=== PATIENT | male | born 1940 | race Caucasian/White ===

== ENCOUNTER → 2024-05-24 16:39 | Outpatient (CLI) | payer MEDICARE, SELFPAY ==
--- NOTE | 2024-05-24 16:44 | DI.RAD.S_ITS ---
PROCEDURE: XR SCAPULA LT INDICATIONS: L SHOULDER PAIN TECHNIQUE: 2 views of the scapula were acquired. COMPARISON: None. FINDINGS: Bones: No fractures or dislocations. No suspicious bony lesions. Visualized ribs appear intact. Soft tissues: Overlying soft tissues appear normal. IMPRESSION: No acute osseous abnormality. If pain persists with conservative management, consider repeat x-ray in 10-14 days or cross-sectional imaging. Dictated by: Howard Beasley M.D. on 05/25/2024 at 9:20 Approved by: Howard Beasley M.D. on 05/25/2024 at 9:20
== END ==
PROVIDERS: PCP Family Medicine; Referring Provider Family Medicine; Visit Provider Family Medicine
DX: M25.512 Pain in left shoulder (principal)
CPT/HCPCS: 73010

== ENCOUNTER 2024-07-25 19:21 | Emergency (ER) | payer MEDICARE, SELFPAY ==
[2024-07-25] VITALS (11 sets, daily range): BP systolic 104–120; BP diastolic 63–75; PULSE 55–71; RESP 15; TEMP 37.2; O2SAT 94–97; BMI 18.8
--- NOTE | 2024-07-25 19:36 | PC.NURSE ---
Pt's daughter Lela (lives in [facility]) called requesting nurse/provider reach out to her to update her on pt's status. She is concerned since patient lives at home alone and has had multiple falls with cognitive decline per Lela. See contacts for her number. I informed Lela we would verify with patient that it is ok to update her. Lela expressed understanding.
--- NOTE | 2024-07-25 20:12 | DI.CT.S_ITS ---
PROCEDURE: CT FACIAL BONES WO CON INDICATIONS: MUTLIPE FALLS, FACIAL INJURIES TECHNIQUE: Noncontrast 2.5 mm thick axial images acquired from the mandible through the frontal sinuses, with coronal and sagittal reformatting. For radiation dose reduction, the following was used: automated exposure control, adjustment of mA and/or kV according to patient size. COMPARISON: None. FINDINGS: Image quality: Excellent. Bones and teeth: Orbital samano are intact. Sinus samano show no fracture or deformity. Nasal bones and septum are intact. Visualized portions of the mandible demonstrate no fractures or subluxation. Zygomatic arches are intact. Pterygoid plates are intact. Visualized portions of the skull base and auditory canals are intact. Sinuses: Paranasal sinuses are aerated, without fluid levels, mucosal thickening, or mucoceles. Mastoid air cells are aerated. Soft tissues: There is left supraorbital soft tissue laceration and mild swelling. No enlarged lymph nodes. No soft tissue lacerations or debris. Vascular: Visualized vascular structures appear normal in the absence of contrast. Bony vascular foramina and canals are intact. IMPRESSION: 1. Left supraorbital soft tissue laceration. No radiopaque foreign bodies. No abnormal soft tissue calcifications. 2. No acute facial bone or nasal bone fracture. Bilateral orbital globes and orbital samano are intact. 3. Bilateral paranasal sinuses are well aerated. Dictated by: Jean Galindo M.D. on 07/25/2024 at 21:16 Approved by: Jean Galindo M.D. on 07/25/2024 at 21:19
--- NOTE | 2024-07-25 20:12 | DI.CT.S_ITS ---
PROCEDURE: CT CERVICAL SPINE WO CON INDICATIONS: MULTIPLE FALLS, FACIAL/HEAD INJURIES TECHNIQUE: Noncontrast 3 mm thick sections acquired from the skull base to the T4 level. Sagittal and coronal reformats were then constructed. For radiation dose reduction, the following was used: automated exposure control, adjustment of mA and/or kV according to patient size. COMPARISON: None. FINDINGS: Image quality: Excellent. Bones: No fractures or dislocations. Degenerative endplate changes, loss of disc height and bilateral uncovertebral hypertrophic changes are noted throughout cervical spine causing [id number] central canal stenosis and bilateral neural foraminal narrowing more notably at C4-5 through C6-7 levels. Incidentally noted are subacute appearing nondisplaced fractures involving left posterior 3rd and 4th ribs. Soft tissues: Prevertebral soft tissues are normal in thickness. No paravertebral hematomas. No apical pneumothoraces. IMPRESSION: 1. No displaced cervical spine fracture or traumatic subluxation. 2. 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 3. Subacute appearing nondisplaced fractures involving left posterior steroid and 4th ribs. Dictated by: Jean Galindo M.D. on 07/25/2024 at 21:19 Approved by: Jean Galindo M.D. on 07/25/2024 at 21:28
--- NOTE | 2024-07-25 20:17 | EKG_ITS ---
[place] [id number] [place] [id number] Test Date: 2024-07-25 Pat Name: Edgardo Martínez Department: [facility] Room: Gender: Male Continuous Process [employer]: : 1940 Requested By: Order Number: [id number] Reading MD: Jose Rico Measurements Intervals [place] Rate: 57 P: 68 [place]: 156 QRS: 35 QRSD: 98 T: 46 QT: 428 QTc: 416 Interpretive Statements Sinus bradycardia Minimal voltage criteria for LVH, may be normal variant ( Sokolow-James ) Septal infarct , age undetermined Electronically Signed On 07-26-2024 8:51:39 PDT by Jose Rico
--- NOTE | 2024-07-25 20:18 | ED_ITS ---
HPI - Fall <Kaylyn Christianson MD - Last Filed: 07/26/24 06:42> General Chief Complaint: Fall Stated Complaint: multiple falls, injuries Time Seen by Provider: 07/25/24 20:08 Source: patient Mode of arrival: Wheelchair History of Present Illness HPI Narrative: 83-year-old male with reported recent diagnosis of parkinsonian syndrome presents by private vehicle for numerous falls. Patient told triage nurse that he was fallen every day for the last month, he tells me that he has fallen every day for at least the last week, but isn't exactly sure of the timeline. He states he feels very dizzy and lightheaded. States that he fell twice today and decided to have his friend bring him in for evaluation. Patient has extensive bruising over his face and cheeks in various stages of healing. Patient also complaining right sided chest and lumbar pain. Related Data Home Medications Medication Instructions Recorded Confirmed finasteride 5 mg tablet 5 mg PO DAILY 07/26/24 07/26/24 gabapentin 300 mg capsule 300 mg PO 3XD 07/26/24 07/26/24 lisinopril 5 mg tablet 5 mg PO DAILY 07/26/24 07/26/24 oxycodone 10 mg tablet 10 mg PO 3XD PRN Back Pain 07/26/24 07/26/24 primidone 50 mg tablet PO 07/26/24 tadalafil 5 mg tablet 5 mg PO DAILY 07/26/24 07/26/24 trazodone 150 mg tablet 150 mg PO ONCE PM 07/26/24 07/26/24 venlafaxine 150 mg 300 mg PO DAILY 07/26/24 07/26/24 capsule,extended release 24 hr Allergies Allergy/AdvReac Type Severity Reaction Status Date / Time No Known Drug Allergies Allergy Verified 07/25/24 20:44 <Fely Tilley DO - Last Filed: 07/27/24 13:59> History of Present Illness HPI Narrative: 83-year-old male with reported recent diagnosis of parkinsonian syndrome presents by private vehicle for numerous falls. Patient told triage nurse that he was fallen every day for the last month, he tells me that he has fallen every day for at least the last week, but isn't exactly sure of the timeline. He states he feels very dizzy and lightheaded. States that he fell twice today and decided to have his friend bring him in for evaluation. Patient has extensive bruising over his face and cheeks in various stages of healing. Patient also complaining right sided chest and lumbar pain. Daughter Lydia [phone] in [place] Patient History <Kaylyn Christianson MD - Last Filed: 07/26/24 06:42> Medical History (Updated 08/18/24 @ 11:49 by Edilson Black MD) Sleep disturbance, unspecified Parkinsons Depression Hypertension Social History household members: none Smoking Status: Never smoker Smoking Status: Never smoker alcohol intake frequency: 0-2 drinks per day Substance Use Type: does not use Exam <Kaylyn Christianson MD - Last Filed: 07/26/24 06:42> Initial Vital Signs Initial Vital Signs: Vital Signs Temperature 98.9 F 07/25/24 19:42 Pulse Rate 71 07/25/24 19:42 Respiratory Rate 15 07/25/24 19:42 Blood Pressure 106/66 07/25/24 19:42 Pulse Oximetry 96 07/25/24 19:42 Oxygen Delivery Method Room Air 07/25/24 19:42 Const: Awake, alert, debilitated, frail, appears chronically unwell Cardiac: regular rate, regular rhythm RESP: unlabored, clear bilaterally, no wheezing GI: Soft, nontender, nondistended MSK: Generalized tenderness along right chest wall, lumbar back Skin: Warm, Dry, extensive bruising over face and cheeks in various stages of healing Neuro: AO x2, CN II-XII grossly intact, moves all extremities <Edilson Black MD - Last Filed: 08/18/24 11:51> Initial Vital Signs Initial Vital Signs: Vital Signs Temperature 98.9 F 07/25/24 19:42 Pulse Rate 71 07/25/24 19:42 Respiratory Rate 15 07/25/24 19:42 Blood Pressure 106/66 07/25/24 19:42 Pulse Oximetry 96 07/25/24 19:42 Oxygen Delivery Method Room Air 07/25/24 19:42 <Fely Tilley DO - Last Filed: 07/27/24 13:59> Initial Vital Signs Initial Vital Signs: Vital Signs Temperature 98.9 F 07/25/24 19:42 Pulse Rate 71 07/25/24 19:42 Respiratory Rate 15 07/25/24 19:42 Blood Pressure 106/66 07/25/24 19:42 Pulse Oximetry 96 07/25/24 19:42 Oxygen Delivery Method Room Air 07/25/24 19:42 Course <Kaylyn Christianson MD - Last Filed: 07/26/24 06:42> Orders Ordered: Discontinued Medications Finasteride (Finasteride 5 Mg Tablet) 5 mg PO DAILY [facility] Last Admin: 07/27/24 08:19 Dose: 5 mg Documented By: Admin: 07/26/24 08:24 Dose: 5 mg Documented By: MPO Fluorescein Sodium (Fluorescein 1 Mg Strip) 1 mg EYE-BOTH NOW ONE Stop: 07/27/24 08:04 Last Admin: 07/27/24 08:19 Dose: 1 mg Documented By: SPF Gabapentin (Gabapentin 300 Mg Capsule) 300 mg PO TID [facility] Last Admin: 07/27/24 08:21 Dose: 300 mg Documented By: Admin: 07/27/24 00:53 Dose: 300 mg Documented By: Admin: 07/26/24 17:02 Dose: 300 mg Documented By: Admin: 07/26/24 08:23 Dose: 300 mg Documented By: MPO Sodium Chloride (Normal Saline 0.9%) 1,000 mls @ 1,000 mls/hr IV BOLUS ONE Stop: 07/25/24 21:11 Last Infusion: 07/25/24 21:32 Dose: Infused Documented By: Admin: 07/25/24 20:26 Dose: 1,000 mls/hr Documented By: KW Levofloxacin (Levaquin) 750 mg in 150 mls @ 100 mls/hr IV NOW ONE Stop: 07/27/24 11:51 Last Infusion: 07/27/24 12:46 Dose: Infused Documented By: Admin: 07/27/24 10:52 Dose: 100 mls/hr Documented By: SPF Lisinopril (Lisinopril 5 Mg Tablet) 5 mg PO DAILY [facility] Last Admin: 07/27/24 08:20 Dose: 5 mg Documented By: Admin: 07/26/24 08:23 Dose: 5 mg Documented By: MPO Lorazepam (Lorazepam 2 Mg/Ml Inj) 0.5 mg IV NOW ONE Stop: 07/27/24 12:06 Last Admin: 07/27/24 12:15 Dose: 0.5 mg Documented By: SPF Lorazepam (Lorazepam 2 Mg/Ml Inj) 0.5 mg IV NOW ONE Stop: 07/27/24 14:08 Last Admin: 07/27/24 14:15 Dose: 0.5 mg Documented By: SPF Morphine Sulfate (Morphine 4 Mg/Ml Inj) 4 mg IV NOW ONE Stop: 07/25/24 20:13 Last Admin: 07/25/24 20:26 Dose: 4 mg Documented By: ANITA Oxycodone HCl (Oxycodone Ir 5 Mg Tablet) 5 mg PO NOW ONE Stop: 07/26/24 01:08 Last Admin: 07/26/24 01:14 Dose: 5 mg Documented By: MARA Oxycodone HCl (Oxycodone Ir 5 Mg Tablet) 5 mg PO NOW ONE Stop: 07/26/24 02:19 Last Admin: 07/26/24 02:23 Dose: 5 mg Documented By: Oxycodone HCl (Oxycodone Er 10 Mg Tab) 10 mg PO TID PRN PRN Reason: Pain, Severe (7-10) Last Admin: 07/27/24 08:21 Dose: 10 mg Documented By: Admin: 07/27/24 00:55 Dose: 10 mg Documented By: Admin: 07/26/24 17:01 Dose: 10 mg Documented By: Admin: 07/26/24 08:23 Dose: 10 mg Documented By: MPO Proparacaine HCl (Proparacaine 0.5% Ophth Afshan) 1 drops EYE-BOTH NOW ONE Stop: 07/27/24 08:04 Last Admin: 07/27/24 08:19 Dose: 1 drop Documented By: SPF Venlafaxine HCl (Venlafaxine 37.5 Mg Tablet) 300 mg PO DAILY [facility] Venlafaxine HCl (Venlafaxine Er 75 Mg Cap) 300 mg PO DAILY [facility] Last Admin: 07/27/24 09:56 Dose: 300 mg Documented By: Admin: 07/26/24 08:23 Dose: 300 mg Documented By: IDA Vital Signs Vital signs: Vital Signs - 8 hr 07/27/24 07:40 07/27/24 07:42 07/27/24 07:43 Pulse Rate Respiratory Rate Blood Pressure 151/80 H 143/76 H 144/83 H Pulse Oximetry Oxygen Delivery Method 07/27/24 07:57 07/27/24 08:00 07/27/24 08:20 Pulse Rate 65 63 62 Respiratory Rate Blood Pressure 151/80 H Pulse Oximetry 95 Oxygen Delivery Method Room Air 07/27/24 08:30 07/27/24 10:50 07/27/24 10:51 Pulse Rate 61 67 Respiratory Rate Blood Pressure 106/61 Pulse Oximetry 98 96 Oxygen Delivery Method 07/27/24 10:51 07/27/24 11:00 07/27/24 11:30 Pulse Rate 67 60 70 Respiratory Rate 24 17 Blood Pressure Pulse Oximetry 98 98 96 Oxygen Delivery Method Room Air Room Air 07/27/24 12:00 07/27/24 12:00 07/27/24 12:30 Pulse Rate 73 58 L Respiratory Rate 14 23 Blood Pressure 101/63 Pulse Oximetry 98 98 Oxygen Delivery Method Room Air 07/27/24 12:44 07/27/24 12:44 07/27/24 13:00 Pulse Rate 59 L 58 L Respiratory Rate 24 27 H Blood Pressure 103/65 Pulse Oximetry 97 97 Oxygen Delivery Method Room Air Room Air 07/27/24 13:30 07/27/24 13:39 07/27/24 13:39 Pulse Rate 58 L 58 L Respiratory Rate 25 H Blood Pressure 111/66 Pulse Oximetry 98 98 Oxygen Delivery Method Room Air Room Air <Edilson Black MD - Last Filed: 08/18/24 11:51> Orders Ordered: Discontinued Medications Finasteride (Finasteride 5 Mg Tablet) 5 mg PO DAILY [facility] Last Admin: 07/27/24 08:19 Dose: 5 mg Documented By: Admin: 07/26/24 08:24 Dose: 5 mg Documented By: MPO Fluorescein Sodium (Fluorescein 1 Mg Strip) 1 mg EYE-BOTH NOW ONE Stop: 07/27/24 08:04 Last Admin: 07/27/24 08:19 Dose: 1 mg Documented By: SPF Gabapentin (Gabapentin 300 Mg Capsule) 300 mg PO TID [facility] Last Admin: 07/27/24 08:21 Dose: 300 mg Documented By: Admin: 07/27/24 00:53 Dose: 300 mg Documented By: Admin: 07/26/24 17:02 Dose: 300 mg Documented By: Admin: 07/26/24 08:23 Dose: 300 mg Documented By: IDA Sodium Chloride (Normal Saline 0.9%) 1,000 mls @ 1,000 mls/hr IV BOLUS ONE Stop: 07/25/24 21:11 Last Infusion: 07/25/24 21:32 Dose: Infused Documented By: Admin: 07/25/24 20:26 Dose: 1,000 mls/hr Documented By: ANITA Levofloxacin (Levaquin) 750 mg in 150 mls @ 100 mls/hr IV NOW ONE Stop: 07/27/24 11:51 Last Infusion: 07/27/24 12:46 Dose: Infused Documented By: Admin: 07/27/24 10:52 Dose: 100 mls/hr Documented By: KANWAL Lisinopril (Lisinopril 5 Mg Tablet) 5 mg PO DAILY [facility] Last Admin: 07/27/24 08:20 Dose: 5 mg Documented By: Admin: 07/26/24 08:23 Dose: 5 mg Documented By: IDA Lorazepam (Lorazepam 2 Mg/Ml Inj) 0.5 mg IV NOW ONE Stop: 07/27/24 12:06 Last Admin: 07/27/24 12:15 Dose: 0.5 mg Documented By: KANWAL Lorazepam (Lorazepam 2 Mg/Ml Inj) 0.5 mg IV NOW ONE Stop: 07/27/24 14:08 Last Admin: 07/27/24 14:15 Dose: 0.5 mg Documented By: SPF Morphine Sulfate (Morphine 4 Mg/Ml Inj) 4 mg IV NOW ONE Stop: 07/25/24 20:13 Last Admin: 07/25/24 20:26 Dose: 4 mg Documented By: ANITA Oxycodone HCl (Oxycodone Ir 5 Mg Tablet) 5 mg PO NOW ONE Stop: 07/26/24 01:08 Last Admin: 07/26/24 01:14 Dose: 5 mg Documented By: MARA Oxycodone HCl (Oxycodone Ir 5 Mg Tablet) 5 mg PO NOW ONE Stop: 07/26/24 02:19 Last Admin: 07/26/24 02:23 Dose: 5 mg Documented By: Oxycodone HCl (Oxycodone Er 10 Mg Tab) 10 mg PO TID PRN PRN Reason: Pain, Severe (7-10) Last Admin: 09/12/24 08:21 Dose: 10 mg Documented By: Admin: 07/27/24 00:55 Dose: 10 mg Documented By: Admin: 07/26/24 17:01 Dose: 10 mg Documented By: Admin: 07/26/24 08:23 Dose: 10 mg Documented By: IDA Proparacaine HCl (Proparacaine 0.5% Ophth Afshan) 1 drops EYE-BOTH NOW ONE Stop: 07/27/24 08:04 Last Admin: 07/27/24 08:19 Dose: 1 drop Documented By: KANWAL Venlafaxine HCl (Venlafaxine 37.5 Mg Tablet) 300 mg PO DAILY [facility] Venlafaxine HCl (Venlafaxine Er 75 Mg Cap) 300 mg PO DAILY [facility] Last Admin: 07/27/24 09:56 Dose: 300 mg Documented By: Admin: 07/26/24 08:23 Dose: 300 mg Documented By: IDA Vital Signs Vital signs: Vital Signs - 8 hr 07/27/24 07:40 07/27/24 07:42 07/27/24 07:43 Pulse Rate Respiratory Rate Blood Pressure 151/80 H 143/76 H 144/83 H Pulse Oximetry Oxygen Delivery Method 07/27/24 07:57 07/27/24 08:00 07/27/24 08:20 Pulse Rate 65 63 62 Respiratory Rate Blood Pressure 151/80 H Pulse Oximetry 95 Oxygen Delivery Method Room Air 07/27/24 08:30 07/27/24 10:50 07/27/24 10:51 Pulse Rate 61 67 Respiratory Rate Blood Pressure 106/61 Pulse Oximetry 98 96 Oxygen Delivery Method 07/27/24 10:51 07/27/24 11:00 07/27/24 11:30 Pulse Rate 67 60 70 Respiratory Rate 24 17 Blood Pressure Pulse Oximetry 98 98 96 Oxygen Delivery Method Room Air Room Air 07/27/24 12:00 07/27/24 12:00 07/27/24 12:30 Pulse Rate 73 58 L Respiratory Rate 14 23 Blood Pressure 101/63 Pulse Oximetry 98 98 Oxygen Delivery Method Room Air 07/27/24 12:44 07/27/24 12:44 07/27/24 13:00 Pulse Rate 59 L 58 L Respiratory Rate 24 27 H Blood Pressure 103/65 Pulse Oximetry 97 97 Oxygen Delivery Method Room Air Room Air 07/27/24 13:30 07/27/24 13:39 09/12/24 13:39 Pulse Rate 58 L 58 L Respiratory Rate 25 H Blood Pressure 111/66 Pulse Oximetry 98 98 Oxygen Delivery Method Room Air Room Air <Fely Tilley DO - Last Filed: 07/27/24 13:59> Orders Ordered: Discontinued Medications Finasteride (Finasteride 5 Mg Tablet) 5 mg PO DAILY [facility] Last Admin: 07/27/24 08:19 Dose: 5 mg Documented By: Admin: 07/26/24 08:24 Dose: 5 mg Documented By: MPO Fluorescein Sodium (Fluorescein 1 Mg Strip) 1 mg EYE-BOTH NOW ONE Stop: 07/27/24 08:04 Last Admin: 07/27/24 08:19 Dose: 1 mg Documented By: SPF Gabapentin (Gabapentin 300 Mg Capsule) 300 mg PO TID [facility] Last Admin: 07/27/24 08:21 Dose: 300 mg Documented By: Admin: 07/27/24 00:53 Dose: 300 mg Documented By: Admin: 07/26/24 17:02 Dose: 300 mg Documented By: Admin: 07/26/24 08:23 Dose: 300 mg Documented By: MPO Sodium Chloride (Normal Saline 0.9%) 1,000 mls @ 1,000 mls/hr IV BOLUS ONE Stop: 07/25/24 21:11 Last Infusion: 07/25/24 21:32 Dose: Infused Documented By: Admin: 07/25/24 20:26 Dose: 1,000 mls/hr Documented By: KW Levofloxacin (Levaquin) 750 mg in 150 mls @ 100 mls/hr IV NOW ONE Stop: 07/27/24 11:51 Last Infusion: 07/27/24 12:46 Dose: Infused Documented By: Admin: 07/27/24 10:52 Dose: 100 mls/hr Documented By: SPF Lisinopril (Lisinopril 5 Mg Tablet) 5 mg PO DAILY [facility] Last Admin: 07/27/24 08:20 Dose: 5 mg Documented By: Admin: 07/26/24 08:23 Dose: 5 mg Documented By: MPO Lorazepam (Lorazepam 2 Mg/Ml Inj) 0.5 mg IV NOW ONE Stop: 07/27/24 12:06 Last Admin: 07/27/24 12:15 Dose: 0.5 mg Documented By: SPF Lorazepam (Lorazepam 2 Mg/Ml Inj) 0.5 mg IV NOW ONE Stop: 07/27/24 14:08 Last Admin: 07/27/24 14:15 Dose: 0.5 mg Documented By: SPF Morphine Sulfate (Morphine 4 Mg/Ml Inj) 4 mg IV NOW ONE Stop: 07/25/24 20:13 Last Admin: 07/25/24 20:26 Dose: 4 mg Documented By: ANITA Oxycodone HCl (Oxycodone Ir 5 Mg Tablet) 5 mg PO NOW ONE Stop: 07/26/24 01:08 Last Admin: 07/26/24 01:14 Dose: 5 mg Documented By: MARA Oxycodone HCl (Oxycodone Ir 5 Mg Tablet) 5 mg PO NOW ONE Stop: 07/26/24 02:19 Last Admin: 07/26/24 02:23 Dose: 5 mg Documented By: Oxycodone HCl (Oxycodone Er 10 Mg Tab) 10 mg PO TID PRN PRN Reason: Pain, Severe (7-10) Last Admin: 07/27/24 08:21 Dose: 10 mg Documented By: Admin: 07/27/24 00:55 Dose: 10 mg Documented By: Admin: 07/26/24 17:01 Dose: 10 mg Documented By: Admin: 07/26/24 08:23 Dose: 10 mg Documented By: MPO Proparacaine HCl (Proparacaine 0.5% Ophth Afshan) 1 drops EYE-BOTH NOW ONE Stop: 07/27/24 08:04 Last Admin: 07/27/24 08:19 Dose: 1 drop Documented By: SPF Venlafaxine HCl (Venlafaxine 37.5 Mg Tablet) 300 mg PO DAILY [facility] Venlafaxine HCl (Venlafaxine Er 75 Mg Cap) 300 mg PO DAILY [facility] Last Admin: 07/27/24 09:56 Dose: 300 mg Documented By: Admin: 07/26/24 08:23 Dose: 300 mg Documented By: MPO Vital Signs Vital signs: Vital Signs - 8 hr 07/27/24 07:40 07/27/24 07:42 07/27/24 07:43 Pulse Rate Respiratory Rate Blood Pressure 151/80 H 143/76 H 144/83 H Pulse Oximetry Oxygen Delivery Method 07/27/24 07:57 07/27/24 08:00 07/27/24 08:20 Pulse Rate 65 63 62 Respiratory Rate Blood Pressure 151/80 H Pulse Oximetry 95 Oxygen Delivery Method Room Air 07/27/24 08:30 07/27/24 10:50 07/27/24 10:51 Pulse Rate 61 67 Respiratory Rate Blood Pressure 106/61 Pulse Oximetry 98 96 Oxygen Delivery Method 07/27/24 10:51 07/27/24 11:00 07/27/24 11:30 Pulse Rate 67 60 70 Respiratory Rate 24 17 Blood Pressure Pulse Oximetry 98 98 96 Oxygen Delivery Method Room Air Room Air 07/27/24 12:00 07/27/24 12:00 07/27/24 12:30 Pulse Rate 73 58 L Respiratory Rate 14 23 Blood Pressure 101/63 Pulse Oximetry 98 98 Oxygen Delivery Method Room Air 07/27/24 12:44 07/27/24 12:44 07/27/24 13:00 Pulse Rate 59 L 58 L Respiratory Rate 24 27 H Blood Pressure 103/65 Pulse Oximetry 97 97 Oxygen Delivery Method Room Air Room Air 07/27/24 13:30 07/27/24 13:39 07/27/24 13:39 Pulse Rate 58 L 58 L Respiratory Rate 25 H Blood Pressure 111/66 Pulse Oximetry 98 98 Oxygen Delivery Method Room Air Room Air MDM - Fall <Kaylyn Christianson MD - Last Filed: 07/26/24 06:42> Lab Data 07/25/24 17:39 07/25/24 17:39 Labs: Lab Results 07/25/24 07/25/24 07/25/24 Range/Units 17:39 23:40 23:40 WBC 7.4 (4.5-11.0) X10^3/uL RBC 3.92 L (4.5-5.9) X10^6/uL Hgb 11.1 L (13.5-17.5) g/dL Hct 33.7 L (41-53) % MCV 86.0 (80-100) fL MCH 28.5 (26-34) PG MCHC 33.1 (30-36) % RDW 16.7 H (11.6-14.8) % Plt Count 217 (150-400) X10^3/uL Neut % (Auto) 63.2 (50-75) % Lymph % (Auto) 16.5 L (25-40) % [place] % (Auto) 11.3 (3-14) % Eos % (Auto) 7.8 H (2-4) % Baso % (Auto) 1.2 (0-2) % Neut # (Auto) 4700 (0784-5255) /uL Lymph # (Auto) 1200 (8861-7250) /uL [place] # (Auto) 800 (0-900) /uL Eos # (Auto) 600 H (0-450) /uL Baso # (Auto) 100 (0-100) /uL PT 10.5 (9.4-12.5) SECONDS INR 0.9 (0.9-1.3) Sodium 141 (137-145) mmol/L Potassium 3.6 (3.4-5.1) mmol/L Chloride 104 (98-107) mmol/L Carbon Dioxide 33 H (22-32) mmol/L BUN 18 (9-20) mg/dL Creatinine 1.22 (0.66-1.25) mg/dL Estimated GFR 59 L (>60) mL/min BUN/Creatinine Ratio 14.8 (6-22) Glucose 109 (80-110) mg/dL Calcium 9.3 (8.4-10.2) mg/dL Magnesium 1.7 (1.6-2.3) mg/dL Total Bilirubin 0.6 (0.2-1.3) mg/dL AST 66 H (17-59) IU/L ALT 55 H (<50) IU/L Alkaline Phosphatase 62 (38-126) U/L Total Protein 6.8 (6.3-8.2) g/dL Albumin 4.1 (3.5-5.0) g/dL Globulin 2.7 (1.7-4.1) g/dL Albumin/Globulin Ratio 1.5 (1.0-2.8) Urine Color Yellow Urine Appearance Clear Urine pH 5.5 TNP (4.5-8.0) Ur Specific Rice 1.025 (1.000-1.035) Urine Protein Trace H (Negative) Urine Glucose (UA) Negative (Negative) g/dL Urine Ketones Trace H (NEGATIVE) Urine Occult Blood Negative (Negative) Urine Nitrate Negative (Negative) Urine Bilirubin 1+ H (NEGATIVE) Ur Bilirubin Confirm Negative (Negative) Urine Urobilinogen 1.0 (0.2) E.U./dL Ur Leukocyte Esterase Negative (NEGATIVE) Urine RBC None seen (0-5/HPF) Urine WBC None seen (0-5/HPF) Ur Squamous Epith Cells 0-1 /hpf (0-5/HPF) Urine Bacteria None seen (None) Ur Culture Indicated? Cult not indicated Vol Urine Centrifuged 10ml (spun) U Opiates 300ng/mL cut Positive H (Negative) Ur Oxycodone Screen Negative (Negative) Urine Methadone Screen Negative (Negative) Ur Barbiturates Screen Positive H (Negative) U Tricyclic Antidepress Negative (Negative) Ur Phencyclidine Scrn Negative (Negative) Ur Amphetamines Screen Negative (Negative) U Methamphetamines Scrn Negative (Negative) Ur MDMA Scrn (Ecstasy) Negative (Negative) U Benzodiazepines Scrn Negative (Negative) Urine Cocaine Screen Negative (Negative) U Marijuana (THC) Screen Negative (Negative) Urine Specific Rice TNP Ethyl Alcohol < 10 ( - 10) mg/dL Ur Creatinine TNP Imaging Data CT - cervical spine: Radiologist's Impression: PROCEDURE: CT CERVICAL SPINE WO CON INDICATIONS: MULTIPLE FALLS, FACIAL/HEAD INJURIES TECHNIQUE: Noncontrast 3 mm thick sections acquired from the skull base to the T4 level. Sagittal and coronal reformats were then constructed. For radiation dose reduction, the following was used: automated exposure control, adjustment of mA and/or kV according to patient size. COMPARISON: None. FINDINGS: Image quality: Excellent. Bones: No fractures or dislocations. Degenerative endplate changes, loss of disc height and bilateral uncovertebral hypertrophic changes are noted throughout cervical spine causing [id number] central canal stenosis and bilateral neural foraminal narrowing more notably at C4-5 through C6-7 levels. Incidentally noted are subacute appearing nondisplaced fractures involving left posterior 3rd and 4th ribs. Soft tissues: Prevertebral soft tissues are normal in thickness. No paravertebral hematomas. No apical pneumothoraces. IMPRESSION: 1. No displaced cervical spine fracture or traumatic subluxation. 2. 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 3. Subacute appearing nondisplaced fractures involving left posterior steroid and 4th ribs. Dictated by: Jean Galindo M.D. on 07/25/2024 at 21:19 Approved by: Jean Galindo M.D. on 07/25/2024 at 21:28 CT scan - head: Radiologist's Impression: PROCEDURE: CT HEAD/BRAIN WO CON INDICATIONS: FREQUENT FALLS, MULTIPLE HEAD INJURIES TECHNIQUE: Noncontrast 4.5 mm thick angled axial sections acquired from the foramen magnum to the vertex, with coronal and sagittal reformats. For radiation dose reduction, the following was used: automated exposure control, adjustment of mA and/or kV according to patient size. COMPARISON: None. FINDINGS: Image quality: Diagnostic. CSF spaces: Basal cisterns are patent. No extra-axial fluid collections. The ventricles are symmetric in size and shape. Brain: No intracranial bleeds or masses. There is cerebral volume loss for age, with resultant ventricular and sulcal prominence. There are periventricular and deep white matter chronic small vessel ischemic changes. There is intracranial internal carotid artery atherosclerosis. Skull and face: Calvarium and visualized facial bones appear intact, without suspicious lesions. Sinuses: Visualized sinuses and mastoids are clear. IMPRESSION: 1. No acute intracranial pathology. 2. Age related volume loss and [id number] periventricular and deep white matter chronic small vessel ischemic changes. Dictated by: Jean Galindo M.D. on 07/25/2024 at 21:15 Approved by: Jean Galindo M.D. on 07/25/2024 at 21:16 PROCEDURE: CT FACIAL BONES WO CON INDICATIONS: MUTLIPE FALLS, FACIAL INJURIES TECHNIQUE: Noncontrast 2.5 mm thick axial images acquired from the mandible through the frontal sinuses, with coronal and sagittal reformatting. For radiation dose reduction, the following was used: automated exposure control, adjustment of mA and/or kV according to patient size. COMPARISON: None. FINDINGS: Image quality: Excellent. Bones and teeth: Orbital samano are intact. Sinus samano show no fracture or deformity. Nasal bones and septum are intact. Visualized portions of the mandible demonstrate no fractures or subluxation. Zygomatic arches are intact. Pterygoid plates are intact. Visualized portions of the skull base and auditory canals are intact. Sinuses: Paranasal sinuses are aerated, without fluid levels, mucosal thickening, or mucoceles. Mastoid air cells are aerated. Soft tissues: There is left supraorbital soft tissue laceration and mild swelling. No enlarged lymph nodes. No soft tissue lacerations or debris. Vascular: Visualized vascular structures appear normal in the absence of contrast. Bony vascular foramina and canals are intact. IMPRESSION: 1. Left supraorbital soft tissue laceration. No radiopaque foreign bodies. No abnormal soft tissue calcifications. 2. No acute facial bone or nasal bone fracture. Bilateral orbital globes and orbital samano are intact. 3. Bilateral paranasal sinuses are well aerated. Dictated by: Jean Galindo M.D. on 07/25/2024 at 21:16 Approved by: Jean Galindo M.D. on 07/25/2024 at 21:19 CT scan - chest: Radiologist's Impression: PROCEDURE: CT CHEST WO CON INDICATIONS: multiple falls, R rib/back pain TECHNIQUE: Noncontrast 5 mm thick sections acquired from the pulmonary apices to the posterior costophrenic angles. 1 mm lung window, 5 mm thick coronal and sagittal and 7 mm axial MIP reformats were then acquired. For radiation dose reduction, the following was used: automated exposure control, adjustment of mA and/or kV according to patient size. COMPARISON: [facility], CT, CT CERVICAL SPINE WO CON, 07/25/2024, 20:52. FINDINGS: Image quality: Diagnostic. Lower Neck: No enlarged lymph nodes. Thyroid: No thyroid nodules which require sonographic follow up, per consensus guidelines. Axillae: No enlarged lymph nodes. Chest Wall: Unremarkable. Bones: Thoracolumbar spine hardware. No suspicious osseous lesion. No hardware fracture. No suspicious osseous lesion. Left 2nd-4th rib fractures, seen on CT cervical spine 07/25/2024. Likely chronic. Healed right 4-7th rib fractures. Right 9th and 10th rib fractures, (2/53). Lungs and Pleura: No pneumothorax. Trace left pleural fluid. No consolidation or suspicious nodules. Right lower lobe pulmonary nodule measuring 0.4 cm, (3/162). Heart: Heart size is normal. Mild LAD coronary artery calcifications. No pericardial effusion. Thoracic Vessels: The aorta and pulmonary arteries demonstrate normal size. Mediastinum and Sheryl: No enlarged lymph nodes. Esophagus: No wall thickening. No hiatal hernia. Upper Abdomen: Post cholecystectomy. Bilateral low-density renal cysts. Small nonobstructing left kidney stone. IMPRESSION: 1. Nondisplaced right 9th and 10th rib fractures. These could be acute. 2. Multiple healed right-sided rib fractures and suspected subacute or chronic left-sided rib fractures. 3. Trace left pleural fluid. Nonobstructing left kidney stone. Post cholecystectomy. Dictated by: Rubens Hma M.D. on 07/26/2024 at 1:46 Approved by: Rubens Ham M.D. on 07/26/2024 at 1:56 CT scan - abdomen/pelvis: Radiologist's Impression: PROCEDURE: CT LUMBAR SPINE WO CON INDICATIONS: multiple falls, lumbar back pain TECHNIQUE: Noncontrast 3 mm thick sections acquired from the T12 level to the sacrum. Sagittal and coronal reformats were constructed. For radiation dose reduction, the following was used: automated exposure control. COMPARISON: [facility] ([place]), CR, XR CHEST 2V, 03/30/2024, 14:54. FINDINGS: Image quality: Good. Beam hardening artifact. Bones: [id number] spine fixation hardware. No hardware fracture. There is normal bony alignment. No acute vertebral body compression fractures. No suspicious lytic or blastic bony lesions. No pars defects. Soft tissues: No retroperitoneal masses or hematomas. Visualized aorta is normal in caliber. Nonobstructing left kidney stone. Low-density renal cysts bilaterally. Left abdominal wall mesh. Clip in the right lower quadrant. Prostatomegaly. Diverticulosis. IMPRESSION: No spine fracture. No hardware fracture. Left nonobstructing kidney stone. Prostatomegaly. Dictated by: Rubens Ham M.D. on 07/26/2024 at 1:56 Approved by: Rubens Ham M.D. on 07/26/2024 at 2:01 MDM Narrative Medical decision making narrative: Patient with bruising all over his forehead and cheeks presenting with multiple falls over an uncertain time period. Patient's recollection of events varies when he tells 2 different people. He does seem confused and very frail. Patient's daughter apparently called and told nursing staff that she was worried about cognitive decline and being unsafe at home. If patient was falling even a fraction of the times that he says that he was fallen it likely is unsafe for him to go back to his home the way he was now. Laboratory work, CT imaging ordered for assessment. Laboratory work reviewed, WBC count 7.4, hemoglobin 11.1, platelets 217, sodium 141, potassium 3.6, creatinine 1.22, glucose 109, T bili 0.6, AST 66, ALT 55, alk phos 62. Urinalysis remarkable for trace ketones, no signs of infection. Urine drug screen positive for opiates and barbiturates. Patient did get IV morphine on arrival due to pain. Patient was unable to recall his medication list at this time. CT imaging reports possibel nondisplaced R 9th and 10th ribs, healed right-sided rib fractures and old left-sided rib fractures. No other traumatic injuries identified. Attempted to have patient walk, however even with maximum assist patient barely able to ambulate with a walker. Physical therapy, occupational therapy, social media coordinator to be consulted for assessment. 07/26/24 - Pending PT/OT/IMMIGRATION LAW SPECIALIST. Care of patient signed to Dr. Black at 0700 <Edilson Black MD - Last Filed: 08/18/24 11:51> Lab Data Labs: Lab Results 07/25/24 07/25/24 07/25/24 Range/Units 17:39 23:40 23:40 WBC 7.4 (4.5-11.0) X10^3/uL RBC 3.92 L (4.5-5.9) X10^6/uL Hgb 11.1 L (13.5-17.5) g/dL Hct 33.7 L (41-53) % MCV 86.0 (80-100) fL MCH 28.5 (26-34) PG MCHC 33.1 (30-36) % RDW 16.7 H (11.6-14.8) % Plt Count 217 (150-400) X10^3/uL Neut % (Auto) 63.2 (50-75) % Lymph % (Auto) 16.5 L (25-40) % [place] % (Auto) 11.3 (3-14) % Eos % (Auto) 7.8 H (2-4) % Baso % (Auto) 1.2 (0-2) % Neut # (Auto) 4700 (2179-4882) /uL Lymph # (Auto) 1200 (6690-7552) /uL [place] # (Auto) 800 (0-900) /uL Eos # (Auto) 600 H (0-450) /uL Baso # (Auto) 100 (0-100) /uL PT 10.5 (9.4-12.5) SECONDS INR 0.9 (0.9-1.3) Sodium 141 (137-145) mmol/L Potassium 3.6 (3.4-5.1) mmol/L Chloride 104 (98-107) mmol/L Carbon Dioxide 33 H (22-32) mmol/L BUN 18 (9-20) mg/dL Creatinine 1.22 (0.66-1.25) mg/dL Estimated GFR 59 L (>60) mL/min BUN/Creatinine Ratio 14.8 (6-22) Glucose 109 (80-110) mg/dL Calcium 9.3 (8.4-10.2) mg/dL Magnesium 1.7 (1.6-2.3) mg/dL Total Bilirubin 0.6 (0.2-1.3) mg/dL AST 66 H (17-59) IU/L ALT 55 H (<50) IU/L Alkaline Phosphatase 62 (38-126) U/L Total Protein 6.8 (6.3-8.2) g/dL Albumin 4.1 (3.5-5.0) g/dL Globulin 2.7 (1.7-4.1) g/dL Albumin/Globulin Ratio 1.5 (1.0-2.8) Urine Color Yellow Urine Appearance Clear Urine pH 5.5 TNP (4.5-8.0) Ur Specific Rice 1.025 (1.000-1.035) Urine Protein Trace H (Negative) Urine Glucose (UA) Negative (Negative) g/dL Urine Ketones Trace H (NEGATIVE) Urine Occult Blood Negative (Negative) Urine Nitrate Negative (Negative) Urine Bilirubin 1+ H (NEGATIVE) Ur Bilirubin Confirm Negative (Negative) Urine Urobilinogen 1.0 (0.2) E.U./dL Ur Leukocyte Esterase Negative (NEGATIVE) Urine RBC None seen (0-5/HPF) Urine WBC None seen (0-5/HPF) Ur Squamous Epith Cells 0-1 /hpf (0-5/HPF) Urine Bacteria None seen (None) Ur Culture Indicated? Cult not indicated Vol Urine Centrifuged 10ml (spun) U Opiates 300ng/mL cut Positive H (Negative) Ur Oxycodone Screen Negative (Negative) Urine Methadone Screen Negative (Negative) Ur Barbiturates Screen Positive H (Negative) U Tricyclic Antidepress Negative (Negative) Ur Phencyclidine Scrn Negative (Negative) Ur Amphetamines Screen Negative (Negative) U Methamphetamines Scrn Negative (Negative) Ur MDMA Scrn (Ecstasy) Negative (Negative) U Benzodiazepines Scrn Negative (Negative) Urine Cocaine Screen Negative (Negative) U Marijuana (THC) Screen Negative (Negative) Urine Specific Rice TNP Ethyl Alcohol < 10 ( - 10) mg/dL Ur Creatinine TNP MDM Narrative Medical decision making narrative: Patient with bruising all over his forehead and cheeks presenting with multiple falls over an uncertain time period. Patient's recollection of events varies when he tells 2 different people. He does seem confused and very frail. Patient's daughter apparently called and told nursing staff that she was worried about cognitive decline and being unsafe at home. If patient was falling even a fraction of the times that he says that he was fallen it likely is unsafe for him to go back to his home the way he was now. Laboratory work, CT imaging ordered for assessment. Laboratory work reviewed, WBC count 7.4, hemoglobin 11.1, platelets 217, sodium 141, potassium 3.6, creatinine 1.22, glucose 109, T bili 0.6, AST 66, ALT 55, alk phos 62. Urinalysis remarkable for trace ketones, no signs of infection. Urine drug screen positive for opiates and barbiturates. Patient did get IV morphine on arrival due to pain. Patient was unable to recall his medication list at this time. CT imaging reports possibel nondisplaced R 9th and 10th ribs, healed right-sided rib fractures and old left-sided rib fractures. No other traumatic injuries identified. Attempted to have patient walk, however even with maximum assist patient barely able to ambulate with a walker. Physical therapy, occupational therapy, social media coordinator to be consulted for assessment. 07/26/24 - Pending PT/OT/IMMIGRATION LAW SPECIALIST. Care of patient signed to Dr. Black at 0700 July 26, 2024 at 7:[address] Black: Sign-out from Dr. Christianson, social work and physical therapy evaluation to be done today. Overnight staff, nurse, February, was able to talk to the daughter this morning, information was recorded and placed for social work to review today. Home medications updated. I placed home meds into orders. Patient in no distress at this time. 7:30 a.m.. Patient resting comfortably. No new issues. 6:[address] Black: Sign out to Dr. Montero social work still here working on patient's disposition. No new issues during course of stay. Home medications have been placed. <Fely Treva, DO - Last Filed: 07/27/24 13:59> Lab Data Labs: Lab Results 07/25/24 07/25/24 07/25/24 Range/Units 17:39 23:40 23:40 WBC 7.4 (4.5-11.0) X10^3/uL RBC 3.92 L (4.5-5.9) X10^6/uL Hgb 11.1 L (13.5-17.5) g/dL Hct 33.7 L (41-53) % MCV 86.0 (80-100) fL MCH 28.5 (26-34) PG MCHC 33.1 (30-36) % RDW 16.7 H (11.6-14.8) % Plt Count 217 (150-400) X10^3/uL Neut % (Auto) 63.2 (50-75) % Lymph % (Auto) 16.5 L (25-40) % [place] % (Auto) 11.3 (3-14) % Eos % (Auto) 7.8 H (2-4) % Baso % (Auto) 1.2 (0-2) % Neut # (Auto) 4700 (2517-5259) /uL Lymph # (Auto) 1200 (4694-8536) /uL [place] # (Auto) 800 (0-900) /uL Eos # (Auto) 600 H (0-450) /uL Baso # (Auto) 100 (0-100) /uL PT 10.5 (9.4-12.5) SECONDS INR 0.9 (0.9-1.3) Sodium 141 (137-145) mmol/L Potassium 3.6 (3.4-5.1) mmol/L Chloride 104 (98-107) mmol/L Carbon Dioxide 33 H (22-32) mmol/L BUN 18 (9-20) mg/dL Creatinine 1.22 (0.66-1.25) mg/dL Estimated GFR 59 L (>60) mL/min BUN/Creatinine Ratio 14.8 (6-22) Glucose 109 (80-110) mg/dL Calcium 9.3 (8.4-10.2) mg/dL Magnesium 1.7 (1.6-2.3) mg/dL Total Bilirubin 0.6 (0.2-1.3) mg/dL AST 66 H (17-59) IU/L ALT 55 H (<50) IU/L Alkaline Phosphatase 62 (38-126) U/L Total Protein 6.8 (6.3-8.2) g/dL Albumin 4.1 (3.5-5.0) g/dL Globulin 2.7 (1.7-4.1) g/dL Albumin/Globulin Ratio 1.5 (1.0-2.8) Urine Color Yellow Urine Appearance Clear Urine pH 5.5 TNP (4.5-8.0) Ur Specific Rice 1.025 (1.000-1.035) Urine Protein Trace H (Negative) Urine Glucose (UA) Negative (Negative) g/dL Urine Ketones Trace H (NEGATIVE) Urine Occult Blood Negative (Negative) Urine Nitrate Negative (Negative) Urine Bilirubin 1+ H (NEGATIVE) Ur Bilirubin Confirm Negative (Negative) Urine Urobilinogen 1.0 (0.2) E.U./dL Ur Leukocyte Esterase Negative (NEGATIVE) Urine RBC None seen (0-5/HPF) Urine WBC None seen (0-5/HPF) Ur Squamous Epith Cells 0-1 /hpf (0-5/HPF) Urine Bacteria None seen (None) Ur Culture Indicated? Cult not indicated Vol Urine Centrifuged 10ml (spun) U Opiates 300ng/mL cut Positive H (Negative) Ur Oxycodone Screen Negative (Negative) Urine Methadone Screen Negative (Negative) Ur Barbiturates Screen Positive H (Negative) U Tricyclic Antidepress Negative (Negative) Ur Phencyclidine Scrn Negative (Negative) Ur Amphetamines Screen Negative (Negative) U Methamphetamines Scrn Negative (Negative) Ur MDMA Scrn (Ecstasy) Negative (Negative) U Benzodiazepines Scrn Negative (Negative) Urine Cocaine Screen Negative (Negative) U Marijuana (THC) Screen Negative (Negative) Urine Specific Rice TNP Ethyl Alcohol < 10 ( - 10) mg/dL Ur Creatinine TNP ECG Data Attestation: I personally reviewed and interpreted this ECG as follows: Prior ECG tracings: available for review Interpretation: Normal sinus rhythm rate 57 W[place] interval 156 QRS [address] changes MDM Narrative Medical decision making narrative: Patient with bruising all over his forehead and cheeks presenting with multiple falls over an uncertain time period. Patient's recollection of events varies when he tells 2 different people. He does seem confused and very frail. Patient's daughter apparently called and told nursing staff that she was worried about cognitive decline and being unsafe at home. If patient was falling even a fraction of the times that he says that he was fallen it likely is unsafe for him to go back to his home the way he was now. Laboratory work, CT imaging ordered for assessment. Laboratory work reviewed, WBC count 7.4, hemoglobin 11.1, platelets 217, sodium 141, potassium 3.6, creatinine 1.22, glucose 109, T bili 0.6, AST 66, ALT 55, alk phos 62. Urinalysis remarkable for trace ketones, no signs of infection. Urine drug screen positive for opiates and barbiturates. Patient did get IV morphine on arrival due to pain. Patient was unable to recall his medication list at this time. CT imaging reports possibel nondisplaced R 9th and 10th ribs, healed right-sided rib fractures and old left-sided rib fractures. No other traumatic injuries identified. Attempted to have patient walk, however even with maximum assist patient barely able to ambulate with a walker. Physical therapy, occupational therapy, social media coordinator to be consulted for assessment. 07/26/24 - Pending PT/OT/IMMIGRATION LAW SPECIALIST. Care of patient signed to Dr. Black at 0700 July 26, 2024 at 7:[address] Black: Sign-out from Dr. Christianson, social work and physical therapy evaluation to be done today. Overnight staff, nurse, February, was able to talk to the daughter this morning, information was recorded and placed for social work to review today. Home medications updated. I placed home meds into orders. Patient in no distress at this time. 7:30 a.m.. Patient resting comfortably. No new issues. 6:[address] Black: Sign out to Dr. Montero social work still here working on patient's disposition. No new issues during course of stay. Home medications have been placed. 07/27/24 730am-signed out to me by Dr. Montero I have seen evaluated patient myself. Waiting for placement, social work involved hopeful for today. Parkinsonian syndrome and been evaluated by PT today. She has been trained and specialized and hence exam she reports a positive hints exam an uptake in nystagmus. I have seen evaluated patient myself. He actually has an irregular cornea and pupil on the right side. No previous documentation of that. He also has significant auricular hematoma. PT recommended MRI for posterior stroke workup Right eye was stained with fluorescein. He has an irregularly shaped pupil and cornea. There is no obvious laceration to the lens or direct injury appreciated. He does have some double vision mildly confused. Awaiting for MRI. [facility] to consult with pictures emailed to the transfer center requested IOP and visual Eye pressure right eye 25mmHg/ Left eye 20mmHg Patient unable to participate for visual acuity he is seeing least lights and shadows [id number] Dr Cook, ophthalmology [facility] updated on patient's symptoms test results she is reviewed images. She says concern for globe rupture needs transfer requests 400 a moxifloxacin. Moxifloxacin not available patient given Levaquin Long discussion with daughter Lydia lives in [place]. She reports he has some mild cognitive impairment APS lu has been involved in case, he has been falling frequently. Updated on concern for globe rupture agrees with transfer to [facility]. States that he is a full code for now. Patient becoming more confused possibly due to on prolonged ED stay. Given Ativan for agitation MRI has been held due to imminent transfer. However patient has had recurrent falls would suggest pursuing MRI for posterior stroke rule out Critical Care Time <Fely Tilley, DO - Last Filed: 07/27/24 13:59> Critical Care Time Critical Care Time: Yes Total Critical Care Time: 35 Attestation: The high probability of a clinically significant, sudden or life threatening deterioration of the ophthalmology system(s) required my full and direct attention, intervention and personal management. The aggregate critical care time was 35 minutes. This time is in addition to time spent performing reported procedures but includes the following: [x] Data Review and interpretation [] Patient assessment and monitoring of vital signs [x] Documentation [x] Medication orders and management Discharge Plan Departure Patient Disposition: General Acute Hospital Clinical Impression: Falls frequently Ruptured globe Qualifiers: Encounter type: initial encounter Laterality: unspecified laterality Qualified Code(s): S05.30XA - Ocular laceration without prolapse or loss of intraocular tissue, unspecified eye, initial encounter Contusion of face Qualifiers: Encounter type: initial encounter Qualified Code(s): S00.83XA - Contusion of other part of head, initial encounter Prescriptions: No Action finasteride 5 mg tablet 5 mg PO DAILY gabapentin 300 mg capsule 300 mg PO 3XD lisinopril 5 mg tablet 5 mg PO DAILY primidone 50 mg tablet PO oxycodone 10 mg tablet 10 mg PO 3XD PRN (Reason: Back Pain) tadalafil 5 mg tablet 5 mg PO DAILY venlafaxine 150 mg capsule,extended release 24hr 300 mg PO DAILY trazodone 150 mg tablet 150 mg PO ONCE PM Referrals: Edilson Seth MD [Primary Care Provider] -
[2024-07-25] MEDS: SODIUM CHLORIDE 0.9% 1,000 ML 1000 ML IV (20:26)
[2024-07-25] MEDS: MORPHINE 4 MG/ML INJ IV (20:26)
[2024-07-25 20:27] LABS: Add Manual Diff / Slide Review NO; Basophils Absolute Auto 100 /uL (0-100); Basophils Percent Auto 1.2 % (0-2); Eosinophils Absolute Auto 600 /uL (0-450); Eosinophils Percent Auto 7.8 % (2-4); Hematocrit 33.7 % (41-53); Hemoglobin 11.1 g/dL (13.5-17.5); Lymphocytes Absolute Auto 1200 /uL (1100-4500); Lymphocytes Percent Auto 16.5 % (25-40); Mean Corpuscular HGB Conc 33.1 % (30-36); Mean Corpuscular Hemoglobin 28.5 PG (26-34); Monocytes Absolute Auto 800 /uL (0-900); Monocytes Percent Auto 11.3 % (3-14); Neutrophils Absolute Auto 4700 /uL (1500-7000); Neutrophils Percent Auto 63.2 % (50-75); Platelet Count 217 X10^3/uL (150-400); Red Blood Cell Count 3.92 X10^6/uL (4.5-5.9); Red Cell Distribution Width 16.7 % (11.6-14.8); White Blood Cell Count 7.4 X10^3/uL (4.5-11.0)
[2024-07-25 20:35] LABS: Alanine Aminotransferase 55 IU/L (<50); Albumin 4.1 g/dL (3.5-5.0); Albumin Globulin Ratio 1.5 (1.0-2.8); Alkaline Phosphatase 62 U/L (38-126); Aspartate Aminotransferase 66 IU/L (17-59); BUN Creatinine Ratio 14.8 (6-22); Bilirubin Total 0.6 mg/dL (0.2-1.3); Blood Urea Nitrogen 18 mg/dL (9-20); Calcium 9.3 mg/dL (8.4-10.2); Carbon Dioxide 33 mmol/L (22-32); Chloride 104 mmol/L (98-107); Estimated Glomerular Filt Rate 59 mL/min (>60); Ethanol (ETOH) < 10 mg/dL; Globulin 2.7 g/dL (1.7-4.1); Glucose 109 mg/dL (80-110); HEMOLYSIS < 15 (0-50); Magnesium 1.7 mg/dL (1.6-2.3); Potassium 3.6 mmol/L (3.4-5.1); Sodium 141 mmol/L (137-145); Total Protein 6.8 g/dL (6.3-8.2)
[2024-07-25 20:39] LABS: INR 0.9 (0.9-1.3); Prothrombin Time 10.5 SECONDS (9.4-12.5)
--- NOTE | 2024-07-25 20:58 | PC.NURSE ---
Patient verbalizes consent to give full records to his daughter Lela, who previously called requesting updates. Pt lives at home alone, daughter is concerned for safety at home d/t falls.
[2024-07-26] VITALS (32 sets, daily range): BP systolic 118–167; BP diastolic 67–76; PULSE 48–68; RESP 14–22; O2SAT 90–99
[2024-07-26 00:26] LABS: Appearance Urine UA CLEAR; Bilirubin Urine UA 1+ (NEGATIVE); Color Urine UA YELLOW; Glucose Urine UA NEGATIVE (Negative); Ketones Urine UA TRACE (NEGATIVE); Leukocyte Esterase Urine UA NEGATIVE (NEGATIVE); Nitrite Urine UA NEGATIVE (Negative); Occult Blood Urine UA NEGATIVE (Negative); Protein Urine UA TRACE (Negative); Specific Gravity Urine UA 1.025 (1.000-1.035); pH Urine UA 5.5 (4.5-8.0)
[2024-07-26 00:32] LABS: Bacteria Urine None Seen; Culture Indicated Urine Cult Not Indicated; Ictotest Urine Negative (Negative); RBC Urine None Seen (0-5/HPF); Squamous Epithelial Cell Urine 0-1 /HPF (0-5/HPF); Urine Volume 10mL (spun); WBC Urine None Seen (0-5/HPF)
[2024-07-26 00:33] LABS: UR Morphine/Opiate cutoff 300 Positive (Negative); Urine Amphetamines Negative (Negative); Urine Barbiturates Positive (Negative); Urine Benzodiazepines Negative (Negative); Urine Cocaine Negative (Negative); Urine MDMA Negative (Negative); Urine Methadone Negative (Negative); Urine Methamphetamines Negative (Negative); Urine Oxycodone Negative (Negative); Urine Phencyclidine Negative (Negative); Urine Tetrahydrocannabinol Negative (Negative); Urine Tricyclic Antidepressant Negative (Negative)
--- NOTE | 2024-07-26 01:07 | DI.CT.S_ITS ---
PROCEDURE: CT LUMBAR SPINE WO CON INDICATIONS: multiple falls, lumbar back pain TECHNIQUE: Noncontrast 3 mm thick sections acquired from the T12 level to the sacrum. Sagittal and coronal reformats were constructed. For radiation dose reduction, the following was used: automated exposure control. COMPARISON: [facility] ([place]), CR, XR CHEST 2V, 03/30/2024, 14:54. FINDINGS: Image quality: Good. Beam hardening artifact. Bones: [id number] spine fixation hardware. No hardware fracture. There is normal bony alignment. No acute vertebral body compression fractures. No suspicious lytic or blastic bony lesions. No pars defects. Soft tissues: No retroperitoneal masses or hematomas. Visualized aorta is normal in caliber. Nonobstructing left kidney stone. Low-density renal cysts bilaterally. Left abdominal wall mesh. Clip in the right lower quadrant. Prostatomegaly. Diverticulosis. IMPRESSION: No spine fracture. No hardware fracture. Left nonobstructing kidney stone. Prostatomegaly. Dictated by: Rubens Ham M.D. on 07/26/2024 at 1:56 Approved by: Rubens Ham M.D. on 07/26/2024 at 2:01
--- NOTE | 2024-07-26 01:07 | DI.CT.S_ITS ---
PROCEDURE: CT CHEST WO CON INDICATIONS: multiple falls, R rib/back pain TECHNIQUE: Noncontrast 5 mm thick sections acquired from the pulmonary apices to the posterior costophrenic angles. 1 mm lung window, 5 mm thick coronal and sagittal and 7 mm axial MIP reformats were then acquired. For radiation dose reduction, the following was used: automated exposure control, adjustment of mA and/or kV according to patient size. COMPARISON: [facility], CT, CT CERVICAL SPINE WO CON, 07/25/2024, 20:52. FINDINGS: Image quality: Diagnostic. Lower Neck: No enlarged lymph nodes. Thyroid: No thyroid nodules which require sonographic follow up, per consensus guidelines. Axillae: No enlarged lymph nodes. Chest Wall: Unremarkable. Bones: Thoracolumbar spine hardware. No suspicious osseous lesion. No hardware fracture. No suspicious osseous lesion. Left 2nd-4th rib fractures, seen on CT cervical spine 07/25/2024. Likely chronic. Healed right 4-7th rib fractures. Right 9th and 10th rib fractures, (2/53). Lungs and Pleura: No pneumothorax. Trace left pleural fluid. No consolidation or suspicious nodules. Right lower lobe pulmonary nodule measuring 0.4 cm, (3/162). Heart: Heart size is normal. Mild LAD coronary artery calcifications. No pericardial effusion. Thoracic Vessels: The aorta and pulmonary arteries demonstrate normal size. Mediastinum and Sheryl: No enlarged lymph nodes. Esophagus: No wall thickening. No hiatal hernia. Upper Abdomen: Post cholecystectomy. Bilateral low-density renal cysts. Small nonobstructing left kidney stone. IMPRESSION: 1. Nondisplaced right 9th and 10th rib fractures. These could be acute. 2. Multiple healed right-sided rib fractures and suspected subacute or chronic left-sided rib fractures. 3. Trace left pleural fluid. Nonobstructing left kidney stone. Post cholecystectomy. Dictated by: Rubens Ham M.D. on 07/26/2024 at 1:46 Approved by: Rubens Ham M.D. on 07/26/2024 at 1:56
--- NOTE | 2024-07-26 01:09 | PC.NURSE ---
Ambulate Pt with walker and pulse oximeter. Pt required assistance with stability and turning around due to dizziness. O2 96% while ambulating. Provider and RN aware of ambulation trial
[2024-07-26] MEDS: OXYCODONE IR 5 MG TABLET PO ×2 (01:14→02:23)
--- NOTE | 2024-07-26 07:25 | PC.NURSE ---
Spoke with Daughter Lela, she is pt main contact. However, Lela lives in [place]. Local caregiver is Satya Okeefe [phone] Ozzie Mcwilliams with [place] [facility] outreach team - [phone] Benedict Campbell with [facility] based in [place] - [phone] Both Ozzie and Benedict have had frequent phone calls to Lela regarding pt. Daughter was primary caregiver for over 10 years in [place]. Last list of Medical history as of May 2023: HTN, depression, Bladder-prostate issue, Parkinson's, and sleep issues Medications: updated in chart based on mail order. Pt has had an issue previously with percocet but can take oxycodone and acetaminophen separately. 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 His last surgery was in 2019. Has had ankle surgery (unsure left or right).
[2024-07-26] MEDS: GABAPENTIN 300 MG CAPSULE PO ×2 (08:23→17:02)
[2024-07-26] MEDS: VENLAFAXINE ER 75 MG CAP 300 MG PO (08:23)
[2024-07-26] MEDS: OXYCODONE ER 10 MG TAB PO ×2 (08:23→17:01)
[2024-07-26] MEDS: lisinopriL 5 MG TABLET PO (08:23)
[2024-07-26] MEDS: FINASTERIDE 5 MG TABLET PO (08:24)
--- NOTE | 2024-07-26 09:21 | PC.NURSE ---
Addendum entered by Corinne Merino R.N. 07/26/24 09:28: Pt confused, restless & fidgety. Called friend from room. Friend called ED to report that pt stated he needed help at the hospital. Went to pt bedside and pt stated that he needs help with very complicated lamps. Friend expresses concerns for cognitive decline. Discussed with pt appropriate use of call patterson and to use call patterson when needing assitance. Pt a&ox3. Original Note: See trauma flow sheet for ED boarding skin assessment.
--- NOTE | 2024-07-26 12:15 | PT.IIE ---
Medical History (Last Updated 07/26/24 @ 07:25 by Taniya Rivera RN) Depression Hypertension Parkinsons Sleep disturbance, unspecified Physical Therapy Inpatient Evaluation/Re-Eval M1 PT/OT-IP Prior Functional Status Start: 07/26/24 12:21 Freq: Status: Active Protocol: Document 07/26/24 12:22 [facility] (Rec: 07/26/24 12:38 [facility] [id number]) Medical Review Prior Functional Status Medical History Reviewed Yes Diet/Fluid Consistency Regular Communication WNL Mobility and Gait indep w/o AD, notes he has had some falls but not as frequently as now Activities of Daily Living and IADL's indep w/dressing and bathing; friend who lives on the property cooks and cleans; pt drives Social History Household Members none Number of Floors (Floors) Two Floors Number of Stairs To Enter/Railing? 1 DARLYN w/wall Home Environment Walk in Shower Home Equipment Shower Seat without Backrest, Long Handled Shoe Horn Additional Social History Comment friend lives on his property; can stay on 1st floor only M2 PT-IP Current Condition Start: 07/26/24 12:21 Freq: Status: Active Protocol: Document 07/26/24 12:22 [facility] (Rec: 07/26/24 12:38 [facility] [id number]) Physical Therapy Current Condition Current Condition Evaluation Date 07/26/24 Treatment Diagnosis falls, rib fx M3 PT-IP Subjective Start: 07/26/24 12:21 Freq: Status: Active Protocol: Document 07/26/24 12:22 [facility] (Rec: 07/26/24 12:38 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 Pt feels like the reason he keeps falling is his dizziness Therapy Pain Assessment Pain When Pain Assessed At Rest Pain Present Pain Present Pain Reported Location Right Ribs Scale Used pain ribs, R elbow & knee M4 PT-IP Mobility and Gait Start: 07/26/24 12:21 Freq: Status: Active Protocol: Document 07/26/24 12:22 [facility] (Rec: 07/26/24 12:38 [facility] [id number]) PT-Transfer Assessment Sit to and From Stand Sit to and from Stand Contact Guard Assistance,Use of Upper Extremities Equipment Transfer Assistive Device Gait Belt,Front Wheeled Walker Orthotic/Prosthetic Devices or Brace: No Gait Assessment Gait Gait Assistance Required: Minimum Assistance Distance (Feet) 10 Assistive Devices Assistive Device Gait Belt Gait Deviations General Gait Pattern Antalgic,Decreased Stride Length,Decreased Feet Clearance Factors Limiting Gait Function Factors Limiting Gait Function Decreased Activity Tolerance, Decreased Strength,Limited Range of Motion,Pain,Poor Balance Comments Gait Comments sit to stand performed 1x for orthostatics (sit: 145/76, stand: 139/75 then after dizziness w/walking 145/70) sit to stand CGA then again CGA then amb to door and back w/min A from PT and pt reaching of other objects to walk. Reported dizziness so sat down again. Pt left w/call light in reach PT-Balance Assessment Sitting Balance and Reactions Static Sitting Balance Ability Good Dynamic Sitting Balance Ability Good Standing Balance and Reactions Static Standing Balance Ability Poor Dynamic Standing Balance Ability Poor M5 PT-IP Objective Assessments Start: 07/26/24 12:21 Freq: Status: Active Protocol: Document 07/26/24 12:22 [facility] (Rec: 07/26/24 12:38 [facility] [id number]) Orientation Orientation/Cognition Level of Alertness Alert Orientation Name,Month,Year,Day of Week, Place,Situation Language Function Ability No Deficits Noted Safety Awareness Understands Safety Issues Comments slower speech in general M6 PT-IP Treatment Start: 07/26/24 12:21 Freq: Status: Active Protocol: Document 07/26/24 12:22 [facility] (Rec: 07/26/24 12:38 [facility] [id number]) Physical Therapy Treatment Education Education Provided Safety M7 PT-IP Assessment and Plan Start: 07/26/24 12:21 Freq: Status: Active Protocol: Document 07/26/24 12:22 [facility] (Rec: 07/26/24 12:38 [facility] [id number]) PT Summary Assessment and Plan Potential Rehabilitation Potential Good Status of Condition at Evaluation Unstable Summary Impairments Pain,ROM,Strength,Balance,Bed Mobility,Transfers,Gait, Activity Tolerance Assessment Summary Pt presents after multiple falls recently with bruises all over body and pt noting increased dizziness causing these falls. Pt unstable when mobilizing today and at this time is not stable by hmself with gait and mobility d/t pt noting diznness and required min A w/the small distance he did ambulate. Pt would benefit from SNF prior to return home . Goals Bed Mobility Goal Standby Assistance Transfer Goal Standby Assistance Gait Goal Standby Assistance,Front Wheel Walker Gait Distance 150ft Other Goals up/down 1 step w/wall SBA Days to Meet Goals 6 Frequency of Treatment Frequency Of Treatment Once a Day Treatment Plan Physical Therapy Treatment Plan Bed Mobility Training,Transfer Training,Gait Training, Therapeutic Exercise,Balance Retraining,Neuromuscular Re-ed ,Coordination Retraining, Manual Therapy Other Recommendations and Next Treatment vestibular consult Focus Recommendations To Nursing Amount of Assist Needed 1 Person Assist Discharge Recommendations PT Discharge Recommendations SNF Rehab Transportation Needs at Discharge Wheelchair/Cabulance
--- NOTE | 2024-07-26 14:06 | OT.IP.EVAL ---
Past Medical History (Last Updated 07/26/24 @ 07:25 by Taniya Rivera RN) Depression Hypertension Parkinsons Sleep disturbance, unspecified Occupational Therapy Inpatient Evaluation/Re-Eval M1 PT/OT-IP Prior Functional Status Start: 07/26/24 12:21 Freq: Status: Active Protocol: Document 07/26/24 14:24 [facility] (Rec: 07/26/24 15:01 [facility] [id number]) Medical Review Prior Functional Status Medical History Reviewed Yes Diet/Fluid Consistency Regular Communication WNL Mobility and Gait indep w/o AD, notes he has had some falls but not as frequently as now Activities of Daily Living and IADL's indep w/dressing and bathing; friend who lives on the property cooks and cleans; pt drives Social History Household Members none Number of Floors (Floors) Two Floors Number of Stairs To Enter/Railing? 1 DARLYN w/wall Home Environment Walk in Shower Home Equipment Four Wheel Walker,Shower Seat without Backrest,Long Handled Shoe Horn,Grab Bars In Shower Additional Social History Comment friend lives on his property; can stay on 1st floor only. Per pt had outpt PT for dizziness and had cleared up but just this week recently returned and not been able to get in again to see the PT. M2 OT-IP Current Condition Start: 07/26/24 14:20 Freq: Status: Active Protocol: Document 07/26/24 14:24 [facility] (Rec: 07/26/24 15:01 [facility] [id number]) Occupational Therapy Current Condition Current Condition Evaluation Date 07/26/24 Treatment Diagnosis Multiple falls, non displaced right 9 and 10 rib fx Diagnosis Onset Date 07/25/24 M3 OT- IP Subjective and Pain Start: 07/26/24 14:20 Freq: Status: Active Protocol: Document 07/26/24 14:24 [facility] (Rec: 07/26/24 15:01 [facility] [id number]) OT- Subjective Occupational Therapy Visit Type Type Initial Evaluation Visit Start Time 13:30 Visit Stop Time 14:06 Occupational Therapy Visit Comments Patient Comments Pt in the ED room and sitting in chair and trying to get dressed as pt thought he was being discharged. Patient/Caregiver Goals TO get better and not be dizzy . OT Pain Assessment Pain When Pain Assessed At Rest Pain Present Pain Present Pain Reported Location Right Ribs Pain Behaviors Facial Grimacing,Holding Area, Moaning,Wincing M4 OT- IP ADL's Start: 07/26/24 14:20 Freq: Status: Active Protocol: Document 07/26/24 14:24 [facility] (Rec: 07/26/24 15:01 [facility] [id number]) OT [id number] Comments OT Self-Feeding Comments Not at meal time. OT ADL-Grooming Comments OT Grooming Comments Not performed. OT ADL-Oral Care Comments Oral Care Comments Not performed. OT ADL-Dressing General Eval Lower Body Dressing Ability Minimal Assistance Comments OT Dressing Comments Pt able to bend over to bertram/ doff his socks. At this time due to pt being dizzy will need CGA/MUMTAZ when standing to do LB dressing needs. OT ADL-Toileting Comments OT Toileting Comments Pt not having to go. OT ADL-Bathing Comments OT Bathing Comments Pt will need assist at this time. M5 OT- IP IADL's Start: 07/26/24 14:20 Freq: Status: Active Protocol: Document 07/26/24 14:24 [facility] (Rec: 07/26/24 15:01 [facility] [id number]) OT-Instrumental Activities of Daily Living Deficits IADL Deficits Identified Deficits Home Safety Awareness Awareness of Need for Assistance at Home Decreased Awareness Home Safety Comments Pt not thinking well at this time, possibly due to multiple falls and concussive symptoms as well. Medication Management Medication Management Comments Pt would benefit from assist. Money Management Money Management Comments Pt will benefit from assist. Meal Preparation Meal Preparation Caregiver Provides Assist Manager Training Manager Training Caregiver Provides Assist Driving Driving Comments Pt initially states drives but then states his friend drives him. M6 OT- IP Functional Cognition Start: 07/26/24 14:20 Freq: Status: Active Protocol: Document 07/26/24 14:24 [facility] (Rec: 07/26/24 15:01 [facility] [id number]) Cognitive Factors Limiting Selfcare Function Cognitive Ability Level of Alertness Alert,Confusional State Patient Orientation Name,Day of Week,Place, Situation Attention Span Ability Capable of Focused Attention, Capable of Sustained Attention Ability to Follow Commands Able to Follow One Step Commands with Increased Time, Able to Follow One Step Commands with Repetition Memory Description Short Term Impaired,Working Impaired Safety Awareness Underestimates Need for Assistance Cognitive Tests SLUMS Pt scored 11/30 on the SLUMS which implies dementia but score may be also influenced by his multiple falls as pt also has bruised on his face, right ear, and is sensitive to the lighting in the room. Pt thought it was , pt not able to compute 100-23, pt only able to recall 5 animals in a minute, pt not able to recall any of the 5 objects after time passed, pt not able to states 4 digit number backwards, pt not able to draw the number on the clock or hour hands correctly after time given, pt able to answer 2/4 questions right after paragraph read. Cognitive Comments Cognitive Assessment Comments Pt confused and thinking he was going home and getting dressed. Had pt try to bertram/ doff his socks to check on his ADL function and pt trying to put his right hospital sock on his right foot that already had a sock on it. To continue to assess pt's cognition and safety awareness. Pt feels that he is not thinking as well since recently having multiple falls and feels that he is not as his baseline. OT- Vision and Hearing OT- Vision Assessment Vision Assessment Comments Pt states his right eye is blurry, noted bump on the right iris and at times right eye not scanning symmetrically with the left eye. Pt states recently has had cataract sx. To further assess. Pt having to close his eyes due to sensitivity to the light. Noted right eyelid more swollen then his left eyelid. M7 OT- IP Mobility and Balance Start: 07/26/24 14:20 Freq: Status: Active Protocol: Document 07/26/24 14:24 [facility] (Rec: 07/26/24 15:01 [facility] [id number]) OT- Bed Mobility Assessment Sit to Supine Sit to Supine Assist Minimal Assistance OT-Transfer Assessment Sit to and From Stand Sit to and from Stand Minimal Assistance Transfers Transfer Ability Minimal Assistance Technique Transfer Destination Bed,Chair Devices Transfer Assistive Devices None OT- Balance Assessment Sitting Balance and Reactions Static Sitting Balance Ability Good Dynamic Sitting Balance Ability Good Standing Balance and Reactions Static Standing Balance Ability Poor Dynamic Standing Balance Ability Poor M8 OT- IP Objective Assessments Start: 07/26/24 14:20 Freq: Status: Active Protocol: Document 07/26/24 14:24 [facility] (Rec: 07/26/24 15:01 [facility] [id number]) OT Strength Upper Extremity Strength Assessment Bilaterally Impaired Comments Strength Comments RUE decreased AROM more then LUE. OT- Coordination Assessment Upper Extremity Finger to Nose Test Bilateral UE Impaired Comments Coordination Comments Left hand more impaired then right side. Athritic changes in both hands. 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 OT Sensation Assessment Edema Edema Comments Pt has bruises throughout his body from frequent falls this past week due to dizziness. M9 OT- IP Assessment and Plan Start: 07/26/24 14:20 Freq: Status: Active Protocol: Document 07/26/24 14:24 [facility] (Rec: 07/26/24 15:01 [facility] [id number]) OT Summary Assessment and Plan Potential Rehabilitation Potential Good Analytic Complexity at Evaluation High Summary OT Impairments Pain,Range of Motion,Strength, Balance,Coordination, Functional Cognition, Functional Mobility,Self- Feeding,Grooming,Dressing, Toileting,Bathing,Toilet Transfers,Shower Transfers, Activity Tolerance Progress Towards Goals Slow Progress due to Pain,Slow Progress due to Medical Issues,Slow Progress due to Activity Tolerance,Slow Progress due to Cognition Assessment Summary Pt high complexity and main barriers are his dizziness from appears to be vestibular issues per pt and therefore causing him to fall frequently in the past week and therefore resulting in now needing more assist with ADl and mobility needs. Pt having difficulty with his thinking and scored 11/30 on the SLUMS which implies dementia- however score may be influenced by his multiple falls as pt had bruises all over his head. Pt having concussive symptoms. Pt will benefit from skilled rehab and pending progress most likely will need more care at home or whether be best for pt to be at a assisted living facility. Goals Self-Feeding Goal Independent Grooming Goal Independent Dressing Goal Independent Toileting Goal Independent Bathing Goal Standby Assistance Toilet Transfer Goal Independent Shower Transfer Goal Standby Assistance Days to Meet Goals 15 Frequency of Treatment Other frequency 5x/week Treatment Plan OT Treatment Plan ADL Training,Functional Cognition Training,Functional Mobility,Patient/Family Education,Discharge Planning Discharge Recommendations OT Discharge Recommendations SNF Rehab Transportation Needs at Discharge Wheelchair/Cabulance
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
--- NOTE | 2024-07-26 20:45 | PC.NURSE ---
Pt has no complaints of pain at this time. Recently given PRN pain medications. 1 person assist to bedside commode
[2024-07-27] VITALS (21 sets, daily range): BP systolic 101–163; BP diastolic 61–83; PULSE 58–76; RESP 14–27; TEMP 37.2; O2SAT 93–99
[2024-07-27] MEDS: GABAPENTIN 300 MG CAPSULE PO ×2 (00:53→08:21)
[2024-07-27] MEDS: OXYCODONE ER 10 MG TAB PO ×2 (00:55→08:21)
[2024-07-27] MEDS: FLUORESCEIN 1 MG STRIP EYE-BOTH (08:19)
[2024-07-27] MEDS: PROPARACAINE 0.5% OPHTH SOL 1 DROPS EYE-BOTH (08:19)
[2024-07-27] MEDS: FINASTERIDE 5 MG TABLET PO (08:19)
[2024-07-27] MEDS: lisinopriL 5 MG TABLET PO (08:20)
--- NOTE | 2024-07-27 08:26 | PT.IPTN ---
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 Pt reports head, face and stomach pain that he later reports is rib pain, 4/10. Therapy Pain Assessment Pain When Pain Assessed At Rest Pain Present Pain Present Pain Reported Location Head, face, stomach (clarified as ribs) Intensity 4 M4 PT-IP Mobility and Gait Start: 07/26/24 12:21 Freq: Status: Active Protocol: Document 07/27/24 07:30 MB (Rec: 07/27/24 08:26 MB [id number]) PT-Bed Mobility Assessment Rolling Type of Rolling Bilateral Level of Assist Contact Guard Assistance Supine to Sit Supine to Sit Maximum Assistance Sit to Supine Sit to Supine Contact Guard Assistance Scooting Scooting to Edge of Bed Contact Guard Assistance Scooting Up and Down in Bed Contact Guard Assistance PT-Transfer Assessment Sit to and From Stand Sit to and from Stand Minimal Assistance,1 Person Assistance,Use of Upper Extremities Equipment Transfer Assistive Device Gait Belt,Front Wheeled Walker Orthotic/Prosthetic Devices or Brace: No Transfers Transfer Destination Bed Transfer Technique Side step to left Transfer Ability Level of Assist Minimal Assistance Comments Mobility Comments Pt almost falls out of bed when rolling to left d/t lack of balance and decreased saftey awareness and max A for PT to catch him and assist to sitting to prevent fall OOB. Pt reports dizziness with mobility. Gait Assessment Gait Gait Assistance Required: Moderate Assistance Distance (Feet) 3 Able to Maintain Weight Bearing Status Yes During Gait Assistive Devices Assistive Device Gait Belt,Front Wheeled Walker Orthotic/Prosthetic Devices or Brace: No Gait Deviations General Gait Pattern Ataxic,Decreased Stride Length ,Decreased Feet Clearance, Flexed Trunk,Step-to Gait,Wide Based Gait Factors Limiting Gait Function Factors Limiting Gait Function Decreased Activity Tolerance, Difficulty Following Directions,Incoordination, Limited Range of Motion,Pain, Poor Balance,Poor Safety Awareness Comments Gait Comments Decreased foot clearance and step-length with side stepping , left side stepping back up to HOB PT-Balance Assessment Sitting Balance and Reactions Static Sitting Balance Ability Poor Dynamic Sitting Balance Ability Poor Standing Balance and Reactions Static Standing Balance Ability Poor Dynamic Standing Balance Ability Poor Device Used RW M5 PT-IP Objective Assessments Start: 07/26/24 12:21 Freq: Status: Active Protocol: Document 07/26/24 12:22 [facility] (Rec: 07/26/24 12:38 [facility] [id number]) Orientation Orientation/Cognition Level of Alertness Alert Orientation Name,Month,Year,Day of Week, Place,Situation Language Function Ability No Deficits Noted Safety Awareness Understands Safety Issues Comments slower speech in general M6 PT-IP Treatment Start: 07/26/24 12:21 Freq: Status: Active Protocol: Document 07/27/24 07:30 MB (Rec: 07/27/24 08:26 MB [id number]) Physical Therapy Treatment Other Treatments Other Treatment Performed HINTS exam: pt is unable to stay safely sitting for exam d /t pain and imbalance and so PT attempts to initiate with pt supine and neck supported on towel roll: pt presents with right eye damage and edema from falls and head injury. Mild/faint right upbeat nystagmus with gaze forward and upward. Nystagmus to right looking to the right and left looking to the left. Pt cannot tolerate head impulse test d/t neck and face pain as PT attempts to move head with head supported on towel roll and pillow. No hearing change reported when PT screens hearing. Test of Skew reveals corrective sacade /tracking of eyes medially and upward to target when eye uncovered and right eye not functioning well and so PT checks left eye twice. Pt is not safe to have functional vertebral artery or BPPV testing d/t narrow and high gurney, pain and poor balance today with bed mobility. Orthostatics in RUE with BP in RUE: supine 151/80, standing 143/76, standing 1' 141/80, standing 2' 146/80. HR does not read on monitor. M7 PT-IP Assessment and Plan Start: 07/26/24 12:21 Freq: Status: Active Protocol: Document 07/27/24 07:30 MB (Rec: 07/27/24 08:26 MB [id number]) PT Summary Assessment and Plan Potential Rehabilitation Potential Fair Status of Condition at Evaluation Unstable Summary Impairments Pain,ROM,Strength,Balance,Bed Mobility,Transfers,Gait, Activity Tolerance Assessment Summary See findings above for orthostatic and HINTS exam today. Pt with some central findings on exam and orthostatics are negative. PT reviews and nsg and MD. Pt has increased pain and PT prevents him falling off of gurney with rolling to left to get OOB to check orthostatics . Goals Bed Mobility Goal Standby Assistance Transfer Goal Standby Assistance Gait Goal Standby Assistance,Front Wheel Walker Gait Distance 150ft Other Goals up/down 1 step w/wall SBA Days to Meet Goals 6 Frequency of Treatment Frequency Of Treatment Once a Day Treatment Plan Physical Therapy Treatment Plan Bed Mobility Training,Transfer Training,Gait Training, Therapeutic Exercise,Balance Retraining,Neuromuscular Re-ed ,Coordination Retraining, Manual Therapy Other Recommendations and Next Treatment Further vestibular testing as Focus appropriate and when in normal bed Recommendations To Nursing Amount of Assist Needed 1 Person Assist Discharge Recommendations PT Discharge Recommendations SNF Rehab Transportation Needs at Discharge Wheelchair/Cabulance
--- NOTE | 2024-07-27 08:53 | PC.NURSE ---
I called pt's daughter Lela to go over MRI screening and provide an update. We got disconnected on the phone. I called back and it went straight to voicemail.
[2024-07-27] MEDS: VENLAFAXINE ER 75 MG CAP 300 MG PO (09:56)
[2024-07-27] MEDS: levoFLOXacin 750 MG/150 ML PIGGYBACK 100 MG IV (10:52)
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
[2024-07-27] MEDS: LORazepam 2 MG/ML INJ 0.5 MG IV ×2 (12:15→14:15)
--- NOTE | 2024-07-27 12:46 | OT.IPNOTE ---
Pt to be transferred to higher care, discharge pt from OT services.
--- NOTE | 2024-07-27 12:47 | PC.NURSE ---
Pt resting in bed, eyes closed, chest rise and fall observed. Call light at bedside and lights dimmed for pt comfort.
== END 2024-07-27 14:20 | disposition short-term general hospital (02) ==
PROVIDERS: Emergency Medicine; Emergency Provider Emergency Medicine; PCP Family Medicine
DX: S05.32XA Ocular laceration without prolapse or loss of intraocular tissue, left eye, initial encounter (principal); S22.32XA Fracture of one rib, left side, initial encounter for closed fracture; S22.31XA Fracture of one rib, right side, initial encounter for closed fracture; H53.2 Diplopia; M54.50 Low back pain, unspecified; R29.6 Repeated falls; G20.A1 Parkinson's disease without dyskinesia, without mention of fluctuations; R42 Dizziness and giddiness; S00.83XA Contusion of other part of head, initial encounter; R07.81 Pleurodynia; R41.0 Disorientation, unspecified; R79.89 Other specified abnormal findings of blood chemistry; W19.XXXA Unspecified fall, initial encounter; I10 Essential (primary) hypertension; J94.8 Other specified pleural conditions; N20.0 Calculus of kidney; R00.1 Bradycardia, unspecified; N40.0 Benign prostatic hyperplasia without lower urinary tract symptoms
CPT/HCPCS: 36415; 70450; 70486; 71250; 72125; 72131; 80053; 80305; 80320; 81001; 83735; 85025; 85610; 93005; 96361; 96365; 96366; 96375; 96376; 97163; 97167; 97530; 99284; 99285; 99291; J1956; J2060; J2270